=== PATIENT | male | born 1980 | race Caucasian/White ===

== ENCOUNTER 2017-08-13 08:07 | Emergency (ER) | payer BC, OTHER ==
[~2017-08-13] VITALS: Ht 152.4 cm; Wt 69.5 kg
[2017-08-13 08:09] VITALS: Ht 152.4 cm; Wt 69.5 kg
[2017-08-13] MEDS ORDERED: MAGNESIUM SULFATE 2 GM, MULTIVITAMINS 10 ML, THIAMINE 100 MG, FOLIC ACID 1 MG in SOD CH... IV STA (08:18)
[2017-08-13] MEDS ORDERED: LORAZEPAM 2 MG INJ IV STA (08:18)
[2017-08-13] MEDS ORDERED: CHLORDIAZEPOXIDE 25 MG CAP PO ONE (08:30)
--- NOTE | 2017-08-13 08:53 | RADRPT ---
PROCEDURE: XR Chest. CLINICAL INDICATION: chest pain TECHNIQUE: Single frontal view of the chest was obtained COMPARISON: CR CHEST 01/29/2016 FINDINGS: The heart and mediastinum are within normal limits. The lungs are clear. There is no pleural effusion or pneumothorax. RPTAT: AA IMPRESSION: No acute disease. .Ajit Mayfield MD, MD Date Time Electronically viewed and signed by .Ajit Mayfield MD, on 08/13/2017 08:52 .S/
[2017-08-13 08:59] LABS: ADD UMIC NO; BASOPHIL # 0.1 10^3/ul (0.0-0.1); BASOPHILS % 0.9 % (0.0-2.0); EOSINOPHILS # 0.1 10^3/ul (0.0-0.5); EOSINOPHILS % 0.7 % (0.0-7.0); HEMATOCRIT 28.9 % (42.0-52.0); HEMOGLOBIN 8.9 g/dl (14.0-18.0); LYMPHOCYTES # 3.2 10^3/ul (0.8-2.9); LYMPHOCYTES % 45.5 % (15.0-51.0); MEAN CORPUSCULAR HEMOGLOBIN 25.9 pg (29.0-33.0); MEAN CORPUSCULAR HGB CONC 30.8 g/dl (32.0-37.0); MEAN PLATELET VOLUME 8.2 fl (7.4-10.4); MONOCYTE # 0.8 10^3/ul (0.3-0.9); NEUTROPHIL # 2.9 10^3/ul (1.6-7.5); NEUTROPHILS % 40.6 % (39.0-77.0); PLATELET COUNT 205 10^3/UL (140-415); RED BLOOD COUNT 3.44 10^6/ul (4.70-6.10); RED CELL DISTRIBUTION WIDTH 20.2 % (11.5-14.5); UR ASCORBIC ACID NEGATIVE (NEGATIVE); UR BILIRUBIN (Dip) NEGATIVE (NEGATIVE); UR BLOOD (Dip) NEGATIVE (NEGATIVE); UR CLARITY CLEAR (CLEAR); UR COLOR YELLOW (YELLOW); UR GLUCOSE (Dip) NEGATIVE (NEGATIVE); UR KETONES (Dip) NEGATIVE (NEGATIVE); UR LEUKOCYTE ESTERASE (Dip) NEGATIVE Leu/ul (NEGATIVE); UR NITRITE (Dip) NEGATIVE (NEGATIVE); UR SPECIFIC GRAVITY (Dip) 1.003 (1.003-1.030); UR TOTAL PROTEIN (Dip) NEGATIVE (NEGATIVE); UR UROBILINOGEN (Dip) NEGATIVE (NEGATIVE)
[2017-08-13 09:13] LABS: ACETAMINOPHEN < 10.0 ug/ml (10.0-30.0); ALANINE AMINOTRANSFERASE 56 IU/L (13-69); ALBUMIN 3.5 g/dl (3.3-4.9); ALBUMIN/GLOBULIN RATIO 0.77; ALKALINE PHOSPHATASE 353 IU/L (42-121); ANION GAP 15 (8-16); ASPARTATE AMINO TRANSFERASE 280 IU/L (15-46); BILIRUBIN,INDIRECT 0.2 mg/dl (0-1.1); BILIRUBIN,TOTAL 0.2 mg/dl (0.2-1.3); BLOOD UREA NITROGEN 5 mg/dl (7-20); CARBON DIOXIDE 31 mmol/L (21-31); CHLORIDE 106 mmol/L (97-110); CREATINE KINASE 101 IU/L (23-200); CREATININE 0.54 mg/dl (0.61-1.24); GLUCOSE 125 mg/dl (70-220); POTASSIUM 3.1 mmol/L (3.5-5.1); SALICYLATE < 1.0 mg/dl (5.0-30.0); SODIUM 149 mmol/L (135-144)
[2017-08-13 09:15] LABS: INR 1.09; PROTIME 14.1 Sec (12.2-14.2); PT RATIO 1.1
[2017-08-13 09:16] LABS: PARTIAL THROMBOPLASTIN TIME 29.7 Sec (25.0-35.0)
[2017-08-13] MEDS ORDERED: NAPR-688 PO (09:19)
[2017-08-13] MEDS ORDERED: ARTIFICIAL SALIVA PO (09:20)
[2017-08-13] MEDS ORDERED: HYDR25CA PO (09:21)
[2017-08-13 09:24] LABS: B-TYPE NATRIURETIC PEPTIDE 32 PG/ML (0-125)
[2017-08-13 09:26] LABS: CK-MB 0.45 ng/ml (0.0-2.4); TROPONIN-I < 0.012 ng/ml (0.00-0.12)
[2017-08-13] MEDS ORDERED: POTASSIUM CHLORIDE (SR) 20 MEQ TAB PO STA (09:30)
[2017-08-13] MEDS ORDERED: TRAZ50TA18 PO (09:33)
[2017-08-13] MEDS ORDERED: KET2CR15 TOP (09:34)
[2017-08-13 09:35] LABS: BARBITURATES Negative (NEGATIVE); BENZODIAZEPINES Negative (NEGATIVE); CANNABINOIDS Negative (NEGATIVE); COCAINE Negative (NEGATIVE); OPIATES Negative (NEGATIVE)
[2017-08-13] MEDS ORDERED: CYAN500T46 PO (09:35)
[2017-08-13] MEDS ORDERED: TRIA15CR55 TOP (09:39)
[2017-08-13] MEDS ORDERED: VIT1TABL46 PO (09:39)
[2017-08-13] MEDS ORDERED: CHOL20002 PO (09:40)
[2017-08-13] MEDS ORDERED: CHOL100062 PO (09:40)
[2017-08-13] MEDS ORDERED: ELVI1TAB3 PO (09:41)
[2017-08-13] MEDS ORDERED: VARE0.5T PO (09:41)
--- NOTE | 2017-08-13 09:44 | ERD ---
ER Documentation Chief Complaint Date/Time DATE: 08/13/17 TIME: 09:31 Chief Complaint chest pain x 2 weeks HPI This is a 37-year-old male with a known history of HIV diagnosed in 2010 on antiretroviral treatment taking triumeq follows up with the [facility] clinic. The patient presents to the emergency department today requesting help and treatment for alcohol withdrawal. The patient states he has been an alcoholic since his late teens. He drinks alcohol on a daily basis. He has consumption of alcohol was roughly 10 hours prior to arrival. He presents to the emergency department feeling anxious with tremors. He has had no history of alcohol withdrawal seizures. He denies any hemoptysis hematemesis or melanotic stools. Contrary to the triage note the patient denies any chest pain or pressure that radiates to the neck or back or jaw. He has no shortness of breath at rest or exertion. He has no fevers shaking or chills and no night sweats. He denies any rashes or lesions. He denies any suicidal or homicidal thoughts or ideations. ROS All systems reviewed and are negative except as per history of present illness. Medications Home Meds Reported Medications Hydroxyzine Pamoate* (Vistaril*) 25 Mg Capsule, 25 MG PO QHS, CAP 08/13/17 [Artificial Saliva] No Conflict Check, 5 ML PO QID 08/13/17 Naproxen* (Naproxen*) 500 Mg Tablet, 500 MG PO BID Y for PAIN, TAB 08/13/17 Allergies Allergies: Coded Allergies: No Known Allergy (Unverified , 01/29/16) PMhx/Soc History of Surgery: Yes (appendectomy, unknown year) Anesthesia Reaction: No Hx Neurological Disorder: No Hx Respiratory Disorders: No Hx Cardiac Disorders: Yes (pt states has "heart problems") Hx Psychiatric Problems: No Hx Miscellaneous Medical Probl: Yes (pt states has HIV) Hx Alcohol Use: Yes ("I'M AN ALCOHOLIC") Hx Substance Use: No (DENIES) Hx Tobacco Use: Yes Smoking Status: Current every day smoker Physical Exam Vitals Vital Signs Date Time Temp Pulse Resp B/P Pulse Ox O2 Delivery O2 Flow Rate FiO2 08/13/17 08:47 98.6 97 16 134/99 99 Room Air 08/13/17 08:09 97.7 119 18 142/98 97 Physical Exam Constitutional:Well-developed. Cachectic. Not in acute respiratory distress HEENT:Normocephalic. Atraumatic.Pupils were equal round reactive to light. Moist mucous membranes.No tonsillar exudates. Neck: No nuchal rigidity. No lymphadenopathy. No posterior cervical spine tenderness or step-offs. Respiratory: Not using accessory muscles of respiration.Lungs were clear to auscultation bilaterally. No rhonchi. No rales. No wheezing. Cardiovascular: Regular rate regular rhythm.No murmurs. No rubs were appreciated.S1, S2 normal. Distal pulses are palpable 2+ bilaterally. GI: Abdomen was soft. Nontender. Non Distended. No pulsatile abdominal masses or bruits. No rebound. No guarding. Bowel sounds were present and normal. Muscle skeletal: Full range of motion of both the upper and lower extremities bilaterally.Normal muscle tone.No assymetrical calf tenderness or swelling. Skin: No petechia, no purpura. No lesions on the palms or the soles of the feet. No maculopapular rash. NEURO: Patient was alert, awake, orientated x3.No facial droop. Gait observed and normal with no ataxia.Speech had regular rate and rhythm. No focal neurological deficits. No asterixis. Result Diagram: 08/13/17 0830 08/13/17 0830 Results 24 hrs Laboratory Tests Test 08/13/17 08:30 White Blood Count 7.010^3/ul Red Blood Count 3.4410^6/ul Hemoglobin 8.9g/dl Hematocrit 28.9% Mean Corpuscular Volume 84.0fl Mean Corpuscular Hemoglobin 25.9pg Mean Corpuscular Hemoglobin Concent 30.8g/dl Red Cell Distribution Width 20.2% Platelet Count 10597^3/UL Mean Platelet Volume 8.2fl Neutrophils % 40.6% Lymphocytes % 45.5% Monocytes % 12.0% Eosinophils % 0.7% Basophils % 0.9% Nucleated Red Blood Cells % 0.0/100WBC Neutrophils # 2.910^3/ul Lymphocytes # 3.210^3/ul Monocytes # 0.810^3/ul Eosinophils # 0.110^3/ul Basophils # 0.110^3/ul Nucleated Red Blood Cells # 0.010^3/ul Prothrombin Time 14.1Sec Prothrombin Time Ratio 1.1 INR International Normalized Ratio 1.09 Activated Partial Thromboplast Time 29.7Sec Urine Color YELLOW Urine Clarity CLEAR Urine pH 7.0 Urine Specific [place] 1.003 Urine Ketones NEGATIVEmg/dL Urine Nitrite NEGATIVEmg/dL Urine Bilirubin NEGATIVEmg/dL Urine Urobilinogen NEGATIVEmg/dL Urine Leukocyte Esterase NEGATIVELeu/ul Urine Hemoglobin NEGATIVEmg/dL Urine Glucose NEGATIVEmg/dL Urine Total Protein NEGATIVEmg/dl Sodium Level 149mmol/L Potassium Level 3.1mmol/L Chloride Level 106mmol/L Carbon Dioxide Level 31mmol/L Anion Gap 15 Blood Urea Nitrogen 5mg/dl Creatinine 0.54mg/dl Glucose Level 125mg/dl Calcium Level 8.0mg/dl Total Bilirubin 0.2mg/dl Direct Bilirubin 0.00mg/dl Indirect Bilirubin 0.2mg/dl Aspartate Amino Transf (AST/SGOT) 280IU/L Alanine Aminotransferase (ALT/SGPT) 56IU/L Alkaline Phosphatase 353IU/L Creatine Kinase 101IU/L Creatine Kinase Index 0.4 Creatinine Kinase MB (Mass) 0.45ng/ml Troponin I < 0.012ng/ml B-Type Natriuretic Peptide 32PG/ML Total Protein 8.0g/dl Albumin 3.5g/dl Globulin 4.50g/dl Albumin/Globulin Ratio 0.77 Salicylates Level < 1.0mg/dl Acetaminophen Level < 10.0ug/ml Ethyl Alcohol Level 449.0mg/dl Current Medications Medications (Trade) Dose Ordered Sig/Maria G Route PRN Reason Start Time Stop Time Status Last Admin Dose Admin Magnesium Sulfate/ Multivitamins/ Thiamine HCl/ Folic Acid/Sodium Chloride (Magnesium Sulfate/Mvi Adult/ Vitamin B1/Folic Acid/NS) 1,015.2 ml @ 500 mls/ hr Q2H2M STAT IV 08/13/17 08:18 08/13/17 10:19 08/13/17 09:05 Lorazepam (Ativan) 1 mg ONCE STAT IV 08/13/17 08:18 08/13/17 08:21 DC 08/13/17 08:55 Chlordiazepoxide (Librium) 50 mg ONCE ONCE PO 08/13/17 08:30 08/13/17 08:31 DC 08/13/17 08:54 Procedures/MDM This patient presented to the emergency department with a known history of HIV. The patient does not know his CD4 count but states his viral load is undetected. His main reasoning for coming to the emergency department was 2 receive treatment for alcohol withdrawal. The patient's serum ethanol was elevated at 400 however he stated he was feeling very tremulous but had no signs of impending delirium tremors. The patient had IV access was established by nursing staff and was given a banana bag to supplement folic acid thiamine and multivitamin. He was also given IV Ativan and Librium. His partner was present during his emergency room visit and a social work consult was obtained and the patient now felt comfortable being discharged home as he was given resources for outpatient detox facilities. Chest radiograph which showed no evidence of infiltrates or pneumothorax. The patient had no evidence of sepsis. There is no evidence of myocardial ischemia. 12 Lead EKG tracing ordered and reviewed by myself showed: Normal sinus rhythm of 99 bpm and no arrhythmia. SD interval normal. QRS duration normal. No ST segment elevation No ST segment depression. No changes consistent with acute ischemia. The patient had mild hypernatremia supplemented with a liter bolus of normal saline thought to be secondary to clinical dehydration. The patient also had hypokalemia and was given oral potassium for supplementation The patient now felt comfortable being discharged home. The patient was discharged home in fair condition. They were instructed to return to the emergency department at any time if there was any worsening of their condition. The patient stated they would follow up with their PCP in the next 24-48 hours to initiate a suitable medication regimen under the care of their PCP as well as to allow their PCP to monitor any drug reactions. The patient was discharged home with prescriptions after they gave informed consent to the new medication. They were also fully informed by myself on the adverse effects and adverse drug interactions in order to provide adequate safeguards to prevent possible adverse reactions to medications. Departure Diagnosis: Primary Impression: Alcohol abuse counseling and surveillance Additional Impressions: Hypokalemia Hypernatremia Condition: Fair SLADE DON Aug 13, 2017 09:42
[2017-08-13 12:06] VITALS: BP 102/68; PULSE 97; RESP 16; TEMP 98.3
== END 2017-08-13 12:14 | disposition home or self-care (01) ==
LOC: E/R 08:07
DX: F10.10 Alcohol abuse, uncomplicated (principal); E87.6 Hypokalemia; E87.0 Hyperosmolality and hypernatremia; F17.210 Nicotine dependence, cigarettes, uncomplicated
CPT/HCPCS: 71010; 80053; 80306; 80307; 81003; 82550; 82553; 83880; 84484; 85025; 85610; 85730; 93005; 96374; 96375; 99285; J2060; J3411; J3475; J7030; Z7610